=== PATIENT | female | born 1985 | race Caucasian/White ===

== ENCOUNTER 2018-12-31 05:13 | Emergency (ER) | payer MEDICAID ==
[~2018-12-31] VITALS: Ht 152.4 cm; Wt 108.9 kg
[2018-12-31 05:16] VITALS: BP 156/82
--- NOTE | 2018-12-31 05:21 | NUR ---
PT TAKEN TO BED 8
--- NOTE | 2018-12-31 05:35 | NUR ---
33/F PRESENTS WITH FAMILY/FRIEND, C/O 08/16 SUDDEN ONSET RUQ PAIN, RADIATING R FLANK/BACK, X2 HRS. PT REPORTS HAVING A SIMILAR MILDER EPISODE LAST WEEK THAT RESOLVED. PT REPORTS NAUSEA. DENIES FEVER, VOMITING. PT AOX4, GCS 15, RR EVEN AND UNLABORED, WITH FACIAL GRIMACING. LUNG SOUNDS CLEAR BL. BS HYPOACTIVE X4, ABD SOFT LARGE ROUND TENDER TO RUQ, DENIES LOWER QUADRANT PAIN. DENIES MED HX OR RX.
--- NOTE | 2018-12-31 05:58 | NUR ---
Dr. Huff evaluating patient at bedside.
[2018-12-31] MEDS ORDERED: ONDANSETRON 4 MG/2 ML VIAL IVP ONE (06:00)
[2018-12-31] MEDS ORDERED: MORPHINE SULFATE 4 MG/ML SYR IVP ONE (06:00)
[2018-12-31] MEDS ORDERED: NACL 0.9% 1,000 ML IV ONE ×2 (06:00→07:20)
--- NOTE | 2018-12-31 06:28 | NUR ---
Ultrasound at bedside.
[2018-12-31 06:29] LABS: BASOPHILS % (AUTO) 0.3 % (0.0-2.0); EOSINOPHILS # (AUTO) 0.1 K/uL (0-0.4); EOSINOPHILS % (AUTO) 1.5 % (0.0-4.0); HEMATOCRIT 39.6 % (36-48); HEMOGLOBIN 13.2 g/dL (12.0-16.0); LYMPHOCYTES % (AUTO) 25.9 % (20.5-51.1); MEAN CORPUSCULAR HEMOGLOBIN 30 pg (27-31); MEAN CORPUSCULAR HGB CONC 33 g/dL (33-37); MEAN CORPUSCULAR VOLUME 90.2 fL (80-94); MONOCYTES # (AUTO) 0.7 K/uL (0.8-1.0); MONOCYTES % (AUTO) 9.3 % (1.7-9.3); PLATELET COUNT (AUTO) 199 K/uL (140-450); RED BLOOD CELL COUNT(AUTO) 4.39 MIL/uL (4.20-5.40); RED CELL DISTRIBUTION WIDTH 12.5 % (11.6-13.7); WHITE BLOOD COUNT (AUTO) 7.9 K/uL (4.8-10.8)
[2018-12-31 06:33] LABS: APPEARANCE,URINE SL CLOUDY (CLEAR); BILIRUBIN,URINE NEGATIVE (NEGATIVE); BLOOD, URINE 3+ (NEGATIVE); COLOR,URINE YELLOW (YELLOW); LEUKOCYTE ESTERASE ,URINE NEGATIVE (NEGATIVE); NITRITE, URINE NEGATIVE (NEGATIVE); PH,URINE 7.5 (5.0-9.0); UGLUCOSE NEGATIVE (NEGATIVE)
[2018-12-31 06:48] LABS: RBC,URINE 3-10 (FEW) /HPF (0-5)
[2018-12-31 06:49] LABS: WBC,URINE 0-5 (RARE) /HPF (0-5)
[2018-12-31 06:57] LABS: ALBUMIN 3.6 g/dL (3.4-5.0); ANION GAP 10.3 (8-16); CARBON DIOXIDE 26.2 mmol/L (21-32); CREATININE 0.6 mg/dL (0.6-1.3); POTASSIUM 3.5 mmol/L (3.5-5.1); TOTAL BILIRUBIN 0.3 mg/dL (0.0-1.0)
--- NOTE | 2018-12-31 07:12 | NUR ---
Pt report given to MARIAH PRYOR. Transfer of care at this time.
[2018-12-31] MEDS ORDERED: PROMETHAZINE 25 MG/ML VIAL IM ONE (07:20)
[2018-12-31] MEDS ORDERED: KETOROLAC 30 MG/ML VIAL IM ONE (07:20)
[2018-12-31] MEDS ORDERED: METOCLOPRAMIDE 10 MG/2 ML INJ VIAL IVP ONE (07:20)
[2018-12-31] MEDS ORDERED: GLYCOPYRROLATE 0.2 MG/ML VIAL IV ONE (07:20)
--- NOTE | 2018-12-31 08:08 | NUR ---
ASSUMED PATIENT CARE, CONCUR WITH PREVIOUS ASSESSMENTS. SAFETY PRECAUTIONS ENFORCED.
[2018-12-31 08:36] LABS: BARBITURATE, URINE NEG. ng/ml (NEG <=200); BENZODIAZEPINE, URINE NEG. ng/mL (NEG <=200); CANNABINOID, URINE NEG. ng/mL (NEG <=50); COCAINE, URINE NEG. ng/mL (NEG <=300); OPIATE, URINE NEG. ng/mL (NEG <=2000); PHENCYCLIDINE SCREEN,URINE NEG. ng/mL (NEG <=25)
[2018-12-31 09:37] VITALS: BP 114/64
--- NOTE | 2018-12-31 09:51 | NUR ---
DISPO AND MEDICAL DECISION MAKING, DC HOME WITH INSTRUCTIONS AND PRESCRIPTIONS. ALL INSTRUCTIONS UNDERSTOOD BY PATIENT WELL, VS WNL, DENIES PAIN, NO DISTRESS. DC HOME AMBULATORY, IV REMOVED, ACCOMPANIED BY SPOUSE.
== END 2018-12-31 09:51 | disposition home or self-care (01) ==
LOC: MED 05:13
DX: K80.70 Calculus of gallbladder and bile duct without cholecystitis without obstruction (principal)
CPT/HCPCS: 36415; 76705; 80053; 80305; 81001; 81025; 82150; 82977; 83690; 85025; 96361; 96372; 96374; 96375; 99284; G0482; J1885; J2270; J2405; J2550; J2765; J3490; J7030; Q0092

== ENCOUNTER 2019-06-13 17:44 | Emergency (ER) | payer MEDICAID, OTHER ==
[~2019-06-13] VITALS: Ht 152.4 cm; Wt 115.9 kg
[2019-06-13 17:54] VITALS: BP 101/71
--- NOTE | 2019-06-13 18:23 | NUR ---
PATIENT AMBULATED TO BED 4.
--- NOTE | 2019-06-13 18:23 | NUR ---
BIB SELF. AAO X4 C/O NAUSEA,RUQ ABDOMINAL PAIN RADIATING TO RIGHT BREAST & RIGHT UPPER BACK X 2 DAYS. PT DENIES TRAUMA/INJURY. PT ABDOMEN ROUND AND NON TENDER. PT AMBULATED WITH STEADY GAIT. ER TO EVALUATE PT.
--- NOTE | 2019-06-13 19:18 | NUR ---
TRANSFER OF CARE AND REPORT GIVEN BY MARIAH CABRERA. PT C/O OF RUQ, R BREAST AND RIGHT UPPER BACK PAIN. PAIN LEVEL 8/10, TENDER TO TOUCH. VSS. WILL CONTINUE TO MONITOR.
[2019-06-13] MEDS ORDERED: NACL 0.9% 1,000 ML IV ONE (19:21)
--- NOTE | 2019-06-13 19:21 | NUR ---
PT AMBULATED TO RESTROOM
[2019-06-13] MEDS ORDERED: KETOROLAC 30 MG/ML VIAL IVP ONE (19:25)
[2019-06-13] MEDS ORDERED: ONDANSETRON 4 MG/2 ML VIAL IVP ONE ×2 (19:25→21:35)
--- NOTE | 2019-06-13 20:50 | NUR ---
PT RESTING IN BED COMFORTABLY, TALKING ON THE PHONE. VSS. PAIN LEVEL DECREASED TO 6/10. WILL CONTINUE TO MONITOR.
[2019-06-13 20:53] LABS: EOSINOPHILS # (AUTO) 0.1 K/uL (0-0.4); HEMOGLOBIN 12.3 g/dL (12.0-16.0); LYMPHOCYTES # (AUTO) 2.4 K/uL (2.5-16.5); LYMPHOCYTES % (AUTO) 25.7 % (20.5-51.1); MONOCYTES # (AUTO) 0.6 K/uL (0.8-1.0); NEUTROPHILS # (AUTO) 6.2 K/uL (1.8-7.7)
[2019-06-13 20:57] LABS: BASOPHILS % (AUTO) 0.4 % (0.0-2.0); EOSINOPHILS % (AUTO) 1.5 % (0.0-4.0); HEMATOCRIT 36.5 % (36-48); MEAN CORPUSCULAR HEMOGLOBIN 30 pg (27-31); MEAN CORPUSCULAR HGB CONC 34 g/dL (33-37); MEAN CORPUSCULAR VOLUME 90.4 fL (80-94); MONOCYTES % (AUTO) 6.7 % (1.7-9.3); NEUTROPHILS % (AUTO) 65.7 % (42.2-75.2); PLATELET COUNT (AUTO) 204 K/uL (140-450); RED BLOOD CELL COUNT(AUTO) 4.04 MIL/uL (4.20-5.40); WHITE BLOOD COUNT (AUTO) 9.4 K/uL (4.8-10.8)
[2019-06-13 21:03] LABS: ANION GAP 9.3 (8-16); CARBON DIOXIDE 28.4 mmol/L (21-32); CREATININE 0.5 mg/dL (0.6-1.3); POTASSIUM 3.7 mmol/L (3.5-5.1)
[2019-06-13 21:09] LABS: ALBUMIN 3.3 g/dL (3.4-5.0); TOTAL BILIRUBIN 0.2 mg/dL (0.0-1.0)
[2019-06-13] MEDS ORDERED: MORPHINE SULFATE 4 MG/ML SYR IVP ONE (21:35)
[2019-06-13 22:22] LABS: APPEARANCE,URINE CLEAR (CLEAR); BILIRUBIN,URINE NEGATIVE (NEGATIVE); BLOOD, URINE NEGATIVE (NEGATIVE); COLOR,URINE YELLOW (YELLOW); LEUKOCYTE ESTERASE ,URINE NEGATIVE (NEGATIVE); NITRITE, URINE NEGATIVE (NEGATIVE); PH,URINE 5.5 (5.0-9.0); UGLUCOSE NEGATIVE (NEGATIVE)
--- NOTE | 2019-06-13 23:45 | NUR ---
Patient discharged with v/s stable. Written and verbal after care instructions given and explained. Patient alert, oriented and verbalized understanding of instructions. Ambulatory with steady gait. All questions addressed prior to discharge. ID band removed. Patient advised to follow up with PMD. Rx of NORCO, NAPROSYN, ZOFRAN WAS given. Patient educated on indication of medication including possible reaction and side effects. Opportunity to ask questions provided and answered.
[2019-06-13 23:55] VITALS: BP 130/55
== END 2019-06-13 23:45 | disposition home or self-care (01) ==
LOC: MED 17:44
DX: R10.11 Right upper quadrant pain (principal); R11.0 Nausea
CPT/HCPCS: 36415; 76705; 80053; 81003; 81025; 83690; 85025; 96374; 96375; 96376; 99284; J1885; J2270; J2405; J7030; Q0092

== ENCOUNTER 2019-09-29 21:49 | Emergency (ER) | payer OTHER ==
[~2019-09-29] VITALS: Ht 137.2 cm; Wt 116.1 kg
[2019-09-29 21:53] VITALS: BP 129/82
--- NOTE | 2019-09-29 21:58 | NUR ---
PT ARRIVED TO ED C/O ABD PAIN X 2DAYS. RATES PAIN 7/10 AND DESCRIBES IT PRESSURE. PT STATES IT RADIATES TO THE RIGTH LOWER BACK. PT DENIES ANY BLOOD IN URINE OR DYSURIA. ABD IS ROUND, SOFT AND ACTIVE BS. TENDERNESS ON LOWER QUADS. VSS. PT STATES SHE ALSO HAS N,VOMITING (7 EPISODES TOTAL). ABLE TO HOLD DOWN FOOD AND LIQUIDS. A & O X4. VSS. NKA. PMH: NONE
--- NOTE | 2019-09-29 21:58 | NUR ---
PT AMBULATED TO BED #5
--- NOTE | 2019-09-29 22:28 | NUR ---
US AT BEDSIDE.
--- NOTE | 2019-09-29 22:38 | NUR ---
LAB AT BEDSIDE.
[2019-09-29 23:07] LABS: BASOPHILS % (AUTO) 0.4 % (0.0-2.0); EOSINOPHILS # (AUTO) 0.1 K/uL (0-0.4); EOSINOPHILS % (AUTO) 1.1 % (0.0-4.0); HEMATOCRIT 39.1 % (36-48); HEMOGLOBIN 13.1 g/dL (12.0-16.0); LYMPHOCYTES # (AUTO) 2.5 K/uL (2.5-16.5); LYMPHOCYTES % (AUTO) 24.4 % (20.5-51.1); MEAN CORPUSCULAR HEMOGLOBIN 31 pg (27-31); MEAN CORPUSCULAR HGB CONC 34 g/dL (33-37); MEAN CORPUSCULAR VOLUME 91.6 fL (80-94); MONOCYTES # (AUTO) 0.6 K/uL (0.8-1.0); MONOCYTES % (AUTO) 5.6 % (1.7-9.3); NEUTROPHILS # (AUTO) 6.9 K/uL (1.8-7.7); NEUTROPHILS % (AUTO) 68.5 % (42.2-75.2); PLATELET COUNT (AUTO) 204 K/uL (140-450); RED BLOOD CELL COUNT(AUTO) 4.27 MIL/uL (4.20-5.40); RED CELL DISTRIBUTION WIDTH 13.2 % (11.6-13.7); WHITE BLOOD COUNT (AUTO) 10.1 K/uL (4.8-10.8)
[2019-09-29 23:24] LABS: CARBON DIOXIDE 27.1 mmol/L (21-32); CREATININE 0.5 mg/dL (0.6-1.3); POTASSIUM 4.1 mmol/L (3.5-5.1)
[2019-09-29 23:30] LABS: ALBUMIN 3.7 g/dL (3.4-5.0); TOTAL BILIRUBIN 0.3 mg/dL (0.0-1.0)
[2019-09-29 23:55] LABS: APPEARANCE,URINE CLEAR (CLEAR); BILIRUBIN,URINE NEGATIVE (NEGATIVE); BLOOD, URINE NEGATIVE (NEGATIVE); COLOR,URINE YELLOW (YELLOW); LEUKOCYTE ESTERASE ,URINE NEGATIVE (NEGATIVE); NITRITE, URINE NEGATIVE (NEGATIVE); PH,URINE 5.5 (5.0-9.0); UGLUCOSE NEGATIVE (NEGATIVE)
[2019-09-30 00:01] VITALS: BP 129/82
--- NOTE | 2019-09-30 00:01 | NUR ---
DR. GRACE D/C PT AND GAVE DISCHARGE INSTRUCTIONS. PT IS STABLE. ALL QUESTIONS AND CONCERNS ANSWERED.
== END 2019-09-30 00:01 | disposition home or self-care (01) ==
LOC: MED 21:49
DX: O21.8 Other vomiting complicating pregnancy (principal); O26.891 Other specified pregnancy related conditions, first trimester; R10.9 Unspecified abdominal pain; Z3A.01 Less than 8 weeks gestation of pregnancy
CPT/HCPCS: 36415; 76817; 80053; 81003; 81025; 84702; 85025; 86900; 86901; 99284; Q0092

== ENCOUNTER 2020-01-03 18:29 | Emergency (ER) | payer OTHER ==
[~2020-01-03] VITALS: Ht 165.1 cm; Wt 81.6 kg
[2020-01-03 18:56] VITALS: BP 136/76
--- NOTE | 2020-01-03 19:44 | NUR ---
PT TAKEN TO BED 4
--- NOTE | 2020-01-03 19:50 | NUR ---
PT BIB SELF FOR LOWER R PELVIC PAIN 04/16 X 4 DAYS. PT STATES PAIN RADIATES TO FLANK. PT STATES SHE HAS ALSO HAD A FEVER AT HOME. PT ADMITS TO TAKING TYLENOL WITH EFFECTIVE RESULTS. PT ABD IS SOFT, ROUND, AND NON-TENDER. PT BS PRESENT X 4. PT STATES SHE IS 5 MONTHS . PT DENIES VAGINAL BLEEDING OR DISCHARGE. LUNG SOUNDS CLEAR A/P BILAT. DENIES COUGH. DENIES N/V/D. RESPIRATIONS ARE EVEN AND UNLABORED. SKIN IS WARM AND DRY TO TOUCH. PT BED LOCKED AND IN LOWEST POSTION. MEDHX: NONE ALLERGIES: NKA
--- NOTE | 2020-01-03 20:30 | NUR ---
DR MEDINA AT BEDSIDE
[2020-01-03 20:45] LABS: APPEARANCE,URINE CLEAR (CLEAR); BILIRUBIN,URINE NEGATIVE (NEGATIVE); BLOOD, URINE NEGATIVE (NEGATIVE); COLOR,URINE YELLOW (YELLOW); LEUKOCYTE ESTERASE ,URINE TRACE (NEGATIVE); NITRITE, URINE NEGATIVE (NEGATIVE); PH,URINE 6.5 (5.0-9.0); UGLUCOSE NEGATIVE (NEGATIVE)
[2020-01-03 21:24] LABS: RBC,URINE 0 /HPF (0-5); WBC,URINE 0-5 /HPF (0-5)
--- NOTE | 2020-01-03 21:58 | NUR ---
DR MEDINA AT BEDSIDE.
[2020-01-03 22:15] VITALS: BP 132/76
--- NOTE | 2020-01-03 22:15 | NUR ---
Patient discharged with v/s stable. Written and verbal after care instructions given and explained. Patient verbalized understanding. Ambulatory with steady gait. All questions addressed prior to discharge. Advised to follow up with PMD.
== END 2020-01-03 22:15 | disposition home or self-care (01) ==
LOC: MED 18:29
DX: O26.892 Other specified pregnancy related conditions, second trimester (principal); R50.9 Fever, unspecified; R10.31 Right lower quadrant pain; Z3A.20 20 weeks gestation of pregnancy
CPT/HCPCS: 81001; 81025; 99283; 99284

== ENCOUNTER 2023-09-21 11:35 | Emergency (ER) | payer OTHER ==
[~2023-09-21] VITALS: Ht 152.4 cm; Wt 125.2 kg
[2023-09-21 11:53] VITALS: BP 132/90; PULSE 66; RESP 15; TEMP 97.9; O2SAT 99
[2023-09-21 12:17] VITALS: O2SAT 99
[2023-09-21] MEDS ORDERED: KETOROLAC 60 MG/2 ML VIAL IM ONE (12:45)
[2023-09-21 13:12] LABS: BASOPHILS # (AUTO) 0.1 K/uL (0.00-0.22); BASOPHILS % (AUTO) 0.7 % (0.0-2.0); EOSINOPHILS # (AUTO) 0.1 K/uL (0-0.4); EOSINOPHILS % (AUTO) 0.7 % (0.0-4.0); HEMATOCRIT 37.9 % (36-48); HEMOGLOBIN 12.6 g/dL (12.0-16.0); LYMPHOCYTES # (AUTO) 3.4 K/uL (2.5-16.5); LYMPHOCYTES % (AUTO) 29.6 % (20.5-51.1); MEAN CORPUSCULAR HEMOGLOBIN 31 pg (27-31); MEAN CORPUSCULAR HGB CONC 33 g/dL (33-37); MEAN CORPUSCULAR VOLUME 91.9 fL (80-94); MONOCYTES # (AUTO) 0.7 K/uL (0.8-1.0); MONOCYTES % (AUTO) 6.1 % (1.7-9.3); NEUTROPHILS # (AUTO) 7.2 K/uL (1.8-7.7); NEUTROPHILS % (AUTO) 62.9 % (42.2-75.2); PLATELET COUNT (AUTO) 234 K/uL (140-450); RED BLOOD CELL COUNT(AUTO) 4.12 MIL/uL (4.20-5.40); RED CELL DISTRIBUTION WIDTH 13.5 % (11.6-13.7); WHITE BLOOD COUNT (AUTO) 11.4 K/uL (4.8-10.8)
[2023-09-21 13:26] LABS: ALBUMIN 3.2 g/dL (3.4-5.0); ANION GAP 9.5 (8-16); CALCIUM 8.7 mg/dL (8.5-10.1); CARBON DIOXIDE 28.8 mmol/L (21-32); CREATININE 0.5 mg/dL (0.6-1.3); POTASSIUM 4.3 mmol/L (3.5-5.1); TOTAL BILIRUBIN 0.4 mg/dL (0.0-1.0); TOTAL PROTEIN, SERUM 7.2 g/dL (6.4-8.2)
[2023-09-21] MEDS ORDERED: TRAM-748 PO ×2 (13:51→13:53)
== END 2023-09-21 14:53 | disposition home or self-care (01) ==
LOC: MED 11:35
DX: K80.50 Calculus of bile duct without cholangitis or cholecystitis without obstruction (principal); Z79.899 Other long term (current) drug therapy
CPT/HCPCS: 36415; 76705; 80053; 81025; 82150; 83690; 85025; 96372; 99285; J1885; Q0092